=== PATIENT | male | born 1975 | race Two or more races ===

== ENCOUNTER 2024-05-14 12:41 | Emergency (ER) | payer OTHER ==
[~2024-05-14] VITALS: Ht 177.8 cm; Wt 95.0 kg
[2024-05-14 13:29] LABS: Basophils # (auto) 0 10 ^3/uL (0-0.2); Basophils % (auto) 0.4 % (0.0-2.0); Eosinophils # (auto) 0.1 10 ^3/uL (0-0.8); Hematocrit 49.5 % (41.0-53.0); Hemoglobin 16.8 g/dL (13.5-17.5); Mean Corpuscular Hemoglobin 30.6 pg (28.0-32.0); Mean Corpuscular Volume 89.9 fL (80.0-100.0); Monocytes # (auto) 0.4 10 ^3/uL (0-1.3); Monocytes % (auto) 6.6 % (0.0-12.0); Neutrophils # (auto) 4.2 10 ^3/uL (1.6-8.6); Nucleated Red Blood Cells % 0.2 %; Platelet Count (auto) 221 10^3/uL (140-450); Red Cell Distribution Width 13.5 % (11.8-14.3); White Blood Cell 6.8 10^3/uL (4.4-10.8)
[2024-05-14 13:41] LABS: Partial Thromboplastin Time 29.7 SEC (24.5-34.5); Prothrombin Time 10.6 sec (9.3-11.8)
[2024-05-14 13:43] LABS: Alanine Aminotransferase 39 U/L (7-40); Albumin 4.8 g/dL (3.2-4.8); Anion Gap 6 (5-15); Aspartate Aminotransferase 20 U/L (13-40); BUN/Creatinine Ratio 14.6 (10.0-20.0); Blood Urea Nitrogen 14 mg/dL (9-23); Carbon Dioxide 29 mmol/L (20-31); Chloride 105 mmol/L (98-107); Potassium 4.1 mmol/L (3.5-5.1); Sodium 140 mmol/L (136-145)
[2024-05-14 13:44] LABS: Total Protein 7.3 g/dL (5.7-8.2)
[2024-05-14 13:46] LABS: Alkaline Phosphatase 123 U/L (46-116); Calcium 10.6 mg/dL (8.7-10.4); Glucose 118 mg/dL (74-106)
--- NOTE | 2024-05-14 13:47 | ECG ---
[facility] Test Date: 2024-05-14 Test Time: 12:49:01 Pat Name: GENNARO HASSAN Department: ER Room: Gender: M Die Setter: YAHIR : 1975 Requested By: JEF PRITCHARD Order Number: [id number] Reading MD: Measurements Intervals [place] Rate: 68 P: -11 IA: 180 QRS: 76 QRSD: 98 T: 41 QT: 385 QTc: 410 Interpretive Statements Sinus rhythm ST elevation suggests acute pericarditis Baseline wander in lead(s) V3 Please click the below link to view image of tracing.
--- NOTE | 2024-05-14 14:10 | ED.PDOC ---
HPI Comments 48-year-old male with no PMHx presents with a chief complaint of chest pain x onset this morning with associated lightheadedness and nausea. Patient states that this morning he woke up and was feeling nauseous and lightheaded. Patient reports that he then began to feel a heavy, pounding in his chest that eventually went away on its own. Patient denies any chest pain like this in the past. Patient reports that he got worried and that is what brought him into the ER. Chief Complaint: Chest Pain Time Seen by MD: 14:00 Reviewed Notes: Medications, Allergies Allergies: Coded Allergies: NO KNOWN ALLERGIES (Unverified , 05/14/24) Information Source: Patient Mode of Arrival: EMS Severity: Moderate Timing: Hours Duration: Intermittent Prehospital treatment: None Location: Substernal Radiation: No Radiation Quality: Heavy Onset: At Rest Cardiac Risk Factors: None PE Risk Factors: None History of: None Modifying Factors: Rest Associated Signs and Symptoms: None Past Medical History PAST MEDICAL HISTORY: Denies Surgical History (Other): Right lower extremity ORIF Family History Family History: Reviewed,noncontributory to illness Social History Smoker: Non-Smoker Alcohol: Denies ETOH Use Drugs: Denies Drug Use Lives In: Home Constitutional: denies: chills, diaphoresis, fatigue, fever, malaise, sweats, weakness, others EENTM: denies: blurred vision, double vision, ear bleeding, ear discharge, ear drainage, ear pain, ear ringing, eye pain, eye redness, hearing loss, mouth pain, mouth swelling, nasal discharge, nose bleeding, nose congestion, nose pain, photophobia, tearing, throat pain, throat swelling, voice changes, others Respiratory: denies: cough, hemoptysis, orthopnea, SOB at rest, shortness of breath, SOB with excertion, stridor, wheezing, others Cardiovascular: reports: chest pain, lightheadedness; denies: dizzy spells, diaphoresis, Dyspnea on exertion, edema, irregular heart beat, left arm pain, palpitations, PND, syncope, others Gastrointestinal: reports: nausea; denies: abdomen distended, abdominal pain, blood streaked bowels, constipated, diarrhea, dysphagia, difficulty swallowing, hematemesis, melena, poor appetite, poor fluid intake, rectal bleeding, rectal pain, vomiting, others Genitourinary: denies: burning, dysuria, flank pain, frequency, hematuria, incontinence, penile discharge, penile sore, pain, testicle pain, testicle swell ing, urgency, others Neurological: denies: dizziness, fainting, headache, left sided numbness, left sided weakness, numbness, paresthesia, pre-existing deficit, right sided numbness, right sided weakness, seizure, speech problems, tingling, tremors, weakness, others Musculoskeletal: denies: back pain, gout, joint pain, joint swelling, muscle pain, muscle stiffness, neck pain, others Integumetry: denies: bruises, change in color, change in hair/nails, dryness, laceration, lesions, lumps, rash, wounds, others Allergic/Immunocompromised: denies: Difficulty Healing, Frequent Infections, Hives, Itching, others Hematologic/Lymphatic: denies: anemia, blood clots, easy bleeding, easy bruising, swollen glands, others Endocrine: denies: excessive hunger, excessive sweating, excessive thirst, excessive urination, flushing, intolerance to cold, intolerance to heat, unexplained weight gain, unexplained weight loss, others Psychiatric: denies: anxiety, bipolar disorder, depression, hopeless, panic disorder, schizophrenia, sleepless, suicidal, others All Other Systems: Reviewed and Negative Physical Exam General Appearance: No Apparent Distress HEENT: Other (Unremarkable) Neck: Full Range of Motion, Normal Inspection Respiratory: Lungs Clear, No Accessory Muscle Use, No Respiratory Distress, Normal Breath Sounds Cardiovascular: No JVD, Regular Rate/Rhythm Breast Exam: Deferred Gastrointestinal: Non Tender, Soft Genitalia: Deferred Pelvic: Deferred Rectal: Deferred Extremities: Leg edema, No calf tenderness, Normal range of motion, Non-tender, Pedal edema, Other (Right lower extremity 1+ edema) Neurologic: Alert (Oriented x4), Normal Affect, Normal Mood, Other (Ambulatory without difficulty. No gross focal deficit.) Cerebellar Function: NOT DONE Reflexes: NOT DONE Skin: Dry, Normal Color, Warm Lymphatic: NOT DONE EKG EKG : Comments Sinus rhythm, rate 68, normal intervals, normal axis, normal QRS, no ST/T changes. Was a procedure done? Was a procedure done?: No CP Differential Dx Differential Diagnosis: Angina, [place], Pulmonary Embolus Other Differential Diagnosis VTE, among others Differential Diagnosis: CHF Differential Diagnosis: Chest Wall Pain, Esophageal reflux/spasm, Gastritis, Pericarditis X-Ray, Labs, Meds, VS Vital Signs Date Time Temp Pulse Resp B/P (MAP) Pulse Ox O2 Delivery O2 Flow Rate FiO2 05/14/24 14:43 98.5 70 20 133/69 (90) 97 98.5 05/14/24 12:49 68 05/14/24 12:49 98.6 68 18 135/81 (99) 99 Lab Test 05/14/24 14:01 05/14/24 13:01 Range/Units Troponin I High Sensitivity 4 5 </=54 ng/L White Blood Count 6.8 4.4-10.8 10^3/uL Red Blood Count 5.50 4.5-5.90 10^6/uL Hemoglobin 16.8 13.5-17.5 g/dL Hematocrit 49.5 41.0-53.0 % Mean Corpuscular Volume 89.9 80.0-100.0 fL Mean Corpuscular Hemoglobin 30.6 28.0-32.0 pg Mean Corpuscular Hemoglobin Concent 34.0 32.0-36.0 g/dL Red Cell Distribution Width 13.5 11.8-14.3 % Platelet Count 221 140-450 10^3/uL Mean Platelet Volume 7.8 6.9-10.8 fL Neutrophils (%) (Auto) 61.0 37.0-80.0 % Lymphocytes (%) (Auto) 30.0 10.0-50.0 % Monocytes (%) (Auto) 6.6 0.0-12.0 % Eosinophils (%) (Auto) 2.0 0.0-7.0 % Basophils (%) (Auto) 0.4 0.0-2.0 % Neutrophils # (Auto) 4.2 1.6-8.6 10 ^3/uL Lymphocytes # (Auto) 2.0 0.4-5.4 10 ^3/uL Monocytes # (Auto) 0.4 0-1.3 10 ^3/uL Eosinophils # (Auto) 0.1 0-0.8 10 ^3/uL Basophils # (Auto) 0 0-0.2 10 ^3/uL Nucleated Red Blood Cells 0.2 % Prothrombin Time 10.6 9.3-11.8 sec Prothrombin Time INR 1.00 0.9-1.15 Activated Partial Thromboplast Time 29.7 24.5-34.5 SEC Sodium Level 140 136-145 mmol/L Potassium Level 4.1 3.5-5.1 mmol/L Chloride Level 105 98-107 mmol/L Carbon Dioxide Level 29 20-31 mmol/L Anion Gap 6 5-15 Blood Urea Nitrogen 14 9-23 mg/dL Creatinine 0.96 0.700-1.30 mg/dL Glomerular Filtration Rate Calc 99 >90 mL/min BUN/Creatinine Ratio 14.6 10.0-20.0 Serum Glucose 118 H 74-106 mg/dL Calcium Level 10.6 H 8.7-10.4 mg/dL Magnesium Level 2.0 1.6-2.6 mg/dL Total Bilirubin 1.0 0.2-1.0 mg/dL Aspartate Amino Transferase (AST) 20 13-40 U/L Alanine Aminotransferase (ALT) 39 7-40 U/L Alkaline Phosphatase 123 H 46-116 U/L B-Type Natriuretic Peptide 21.09 0-100 pg/mL Total Protein 7.3 5.7-8.2 g/dL Albumin 4.8 3.2-4.8 g/dL PROCEDURE(s): CXRP - CHEST PORTABLE REASON: CP ORDER NUMBER(s): [id number], ACCESSION NUMBER(s): [id number] CHEST RADIOGRAPH Indication: CP Technique: Single frontal view of the chest was obtained Comparison: None FINDINGS: Lines and Tubes: None Lungs: No focal consolidation. Pleura: No effusion. No pneumothorax. Cardiomediastinal contours: Unremarkable Bones: No acute osseous abnormality. IMPRESSION: No acute cardiopulmonary disease. EDURE(s): RLDVT - RT Lower DVT REASON: edema ORDER NUMBER(s): [id number], ACCESSION NUMBER(s): [id number] RIGHT LOWER EXTREMITY VENOUS DOPPLER CLINICAL HISTORY: edema TECHNIQUE: Right lower extremity venous doppler study was performed. COMPARISON: None FINDINGS: The right common femoral, superficial femoral, popliteal, posterior tibial veins appear patent with normal augmentation, phasicity, compressibility and color-flow. . The left common femoral vein appears patent. IMPRESSION: 1. No sonographic evidence of DVT in the right leg. HS:Y X-Ray, Labs, Meds, VS Comment 48-year-old male with a history of right lower extremity surgery complaining of chest pain and right lower extremity swelling Vitals unremarkable Exam remarkable for right lower extremity 1+ edema. No calf tenderness. Rhythm strip independently interpreted by me: Sinus rhythm, rate 68, no ectopy. Chest x-ray unremarkable Right lower extremity ultrasound negative for DVT CBC, CMP, BNP and 2 serial troponins unremarkable for any abnormality of acute significance. Patient treated with the following in the ED: Toradol 60 mg IM, Zofran ODT 4 mg p.o. On re-evaluation, patient's vitals were unremarkable. He was not having the pounding chest discomfort. He was otherwise well-appearing. Hospitalization was considered, however patient had a negative cardiac workup and there was no evidence of VTE on the lower extremity Doppler. I now feel comfortable discharging the patient home with close follow-up with his primary physician. Rx Zofran, ibuprofen Time of 1ST Reevaluation: 14:30 Reevaluation 1ST: Unchanged Patient Education/Counseling: Diagnosis, Treatment, Prognosis Family Education/Counseling: No Family Present Departure 1 Departure Time of Disposition: 18:58 Impression: Primary Impression: Edema of right lower extremity Additional Impression: Chest pain Qualified Codes: R07.9 - Chest pain, unspecified Disposition: HOME / SELF CARE / HOMELESS Condition: Stable Additional Instructions: Your blood tests including screening test for heart attack and heart failure were unremarkable. Your chest x-ray was normal. Your EKG was normal. Your lower extremity ultrasound did not show a blood clot. I have prescribed medication for nausea and pain. Follow-up with your primary doctor in 1-2 days. e-Prescriptions Ondansetron Odt 4MG Tab (ZOFRAN PO) 4 Mg Tb 4 MG PO TID PRN, #20 TAB prn n/v ODT TAB-DISSOLVE IN MOUTH, THEN SWALLOW Prov: JEF EPPS MD 05/14/24 Ibuprofen Micronized (Ibuprofen) 800 Mg Tab 800 MG PO Q8HP PRN, #30 TAB Prov: JEF EPPS MD 05/14/24 Discharged With: Self Critical Care Note Critical Care Time?: No Stability Stability form required: No Heart Score Heart Score: Heart Score Response (Comments) Value History Slightly Suspicious 0 EKG Normal 0 Age 45-64 1 Risk Factors No known risk factors 0 Troponin Normal limit 0 Total 1 I personally scribed for JEF EPPS MD ([email or web address]) on 05/14/24 at 14:10. Electronically submitted by Rai Morris ([email or web address]). JEF EPPS MD May 14, 2024 14:10
--- NOTE | 2024-05-14 14:41 | DVH ---
RIGHT LOWER EXTREMITY VENOUS DOPPLER CLINICAL HISTORY: edema TECHNIQUE: Right lower extremity venous doppler study was performed. COMPARISON: None FINDINGS: The right common femoral, superficial femoral, popliteal, posterior tibial veins appear patent with normal augmentation, phasicity, compressibility and color-flow. . The left common femoral vein appears patent. IMPRESSION: 1. No sonographic evidence of DVT in the right leg. HS:Y
--- NOTE | 2024-05-14 14:50 | DVH ---
CHEST RADIOGRAPH Indication: CP Technique: Single frontal view of the chest was obtained Comparison: None FINDINGS: Lines and Tubes: None Lungs: No focal consolidation. Pleura: No effusion. No pneumothorax. Cardiomediastinal contours: Unremarkable Bones: No acute osseous abnormality. IMPRESSION: No acute cardiopulmonary disease.
[2024-05-14] MEDS ORDERED: IBUP-1455 PO (19:02)
[2024-05-14] MEDS ORDERED: ZOFR4T PO (19:02)
[2024-05-14] MEDS: KETOROLAC TROMETH 60MG/2ML VIAL IM ONE (19:28)
[2024-05-14] MEDS: ONDANSETRON ODT 4 MG TAB PO ONE (19:29)
[2024-05-14] MEDS ORDERED: HYDR50TA32 PO (19:56)
[2024-05-14 20:15] VITALS: BP 121/70; PULSE 76; RESP 20; TEMP 98.8; O2SAT 97
== END 2024-05-14 20:17 | disposition home or self-care (01) ==
LOC: EEVIPCON 12:41 → EDBD 12:41 → ER 12:41
DX: R60.0 Localized edema (principal); R07.89 Other chest pain; Z98.890 Other specified postprocedural states; Z79.899 Other long term (current) drug therapy
CPT/HCPCS: 36415; 71045; 80053; 83735; 83880; 84484; 85025; 85610; 85730; 93005; 93971; 99285; J1885; Q0162